=== PATIENT | female | born 1995 | race Caucasian/White ===

== ENCOUNTER 2019-09-07 14:49 | Emergency (ER) | payer BC ==
[2019-09-07] MEDS ORDERED: ASPIRIN 81 MG TABLET, CHEWABLE PO ONE (15:17)
--- NOTE | 2019-09-07 15:21 | ER Document Report ---
ED Medical Screen (RME) - General Chief Complaint: Chest Pain Stated Complaint: CHEST PAIN,TROUBLE BREATHING Time Seen by Provider: 09/07/19 15:14 Mode of Arrival: Ambulatory Information source: Patient Notes: Patient presents complaining of difficulty breathing for the past 2 days. Patient complains of a vibrating feeling into her chest that is uncomfortable. Patient states that her right arm feels numb and she has had some shortness of breath. Patient denies any cough or cold symptoms. Patient denies any significant medical problems or any family history of early heart disease. I have greeted and performed a rapid initial assessment of this patient. A comprehensive ED assessment and evaluation of the patient, analysis of test results and completion of the medical decision making process will be conducted by additional ED providers. TRAVEL OUTSIDE OF THE [place] IN LAST 30 DAYS: No - Related Data Allergies/Adverse Reactions: No Known Allergies Allergy (Unverified 09/07/19 15:14) Home Medications: denies Past Medical History - Social History Chew tobacco use (# tins/day): No Frequency of alcohol use: None Drug Abuse: None Physical Exam - Vital signs Vitals: Temp Pulse Resp BP Pulse Ox 98.8 F 93 16 121/71 99 09/07/19 15:12 09/07/19 15:12 09/07/19 15:12 09/07/19 15:12 09/07/19 15:12 - Respiratory Respiratory status: No respiratory distress Chest status: Tender Breath sounds: Normal Course - Vital Signs Vital signs: Temp Pulse Resp BP Pulse Ox 98.8 F 93 16 121/71 99 09/07/19 15:12 09/07/19 15:12 09/07/19 15:12 09/07/19 15:12 09/07/19 15:12
--- NOTE | 2019-09-07 15:49 | ER Document Report ---
ED Cardiac - General Chief Complaint: Chest Pain Stated Complaint: CHEST PAIN,TROUBLE BREATHING Time Seen by Provider: 09/07/19 15:14 Mode of Arrival: Ambulatory TRAVEL OUTSIDE OF THE [place] IN LAST 30 DAYS: No - Related Data Allergies/Adverse Reactions: No Known Allergies Allergy (Unverified 09/07/19 15:14) Home Medications: denies Past Medical History - General Information source: Patient - Social History Smoking Status: Never Smoker Chew tobacco use (# tins/day): No Frequency of alcohol use: None Drug Abuse: None Patient has suicidal ideation: No Patient has homicidal ideation: No Physical Exam - Vital signs Vitals: Temp Pulse Resp BP Pulse Ox 98.8 F 93 16 121/71 99 09/07/19 15:12 09/07/19 15:12 09/07/19 15:12 09/07/19 15:12 09/07/19 15:12 Course - Re-evaluation Re-evalutation: Given the history and physical examination, the patient's age, risk factors, oxygenation, heart rate, without radiation to the back, I do believe pulmonary embolism and dissection to be extremely unlikely. Cardiac labs were ordered in triage as well as an EKG and an x-ray of the chest. 09/07/19 15:49 EKG shows a rate of 84, normal sinus rhythm, normal axis, no ST elevation or depression. - Vital Signs Vital signs: Temp Pulse Resp BP Pulse Ox 98.8 F 93 13 143/96 H 100 09/07/19 15:12 09/07/19 15:12 09/07/19 15:25 09/07/19 15:25 09/07/19 15:25 - Laboratory Result Diagrams: 09/07/19 15:28 09/07/19 15:28
[2019-09-07 15:57] LABS: ABSOLUTE LYMPHOCYTES (AUTO) 1.5 10^3/uL (0.5-4.7); ABSOLUTE MONOCYTES (AUTO) 0.4 10^3/uL (0.1-1.4); ABSOLUTE NEUT (AUTO) 4.2 10^3/uL (1.7-8.2); BASOPHILS % (AUTO) 0.5 % (0-2); EOSINOPHILS % (AUTO) 0.3 % (0-6); HEMATOCRIT 38.5 % (36.0-47.0); HEMOGLOBIN 13.3 g/dL (12.0-15.5); LYMPHOCYTES % (AUTO) 24.4 % (13-45); MEAN CORPUSCULAR HEMOGLOBIN 32.1 pg (27.0-33.4); MEAN CORPUSCULAR HGB CONC 34.7 g/dL (32.0-36.0); MEAN CORPUSCULAR VOLUME 93 fl (80-97); MONOCYTES % (AUTO) 7.3 % (3-13); PLATELET COUNT 222 10^3/uL (150-450); RED BLOOD COUNT 4.15 10^6/uL (3.72-5.28); RED CELL DISTRIBUTION WIDTH 12.4 % (11.5-14.0); SEGMENTED NEUTROPHILS % (AUTO) 67.5 % (42-78); TOTAL CELLS COUNTED % (AUTO) 100 %; WHITE BLOOD COUNT 6.2 10^3/uL (4.0-10.5)
[2019-09-07 16:13] LABS: ALBUMIN 4.6 g/dL (3.5-5.0); ALKALINE PHOSPHATASE 69 U/L (38-126); ANION GAP 9 (5-19); ASPARTATE AMINO TRANSFERASE 27 U/L (14-36); BILIRUBIN,TOTAL 0.4 mg/dL (0.2-1.3); BLOOD UREA NITROGEN 15 mg/dL (7-20); CALCIUM 9.6 mg/dL (8.4-10.2); CARBON DIOXIDE 29 mmol/L (22-30); CHLORIDE 101 mmol/L (98-107); GLUCOSE 150 mg/dL (75-110); POTASSIUM 3.7 mmol/L (3.6-5.0); TOTAL PROTEIN 7.4 g/dL (6.3-8.2)
--- NOTE | 2019-09-07 16:28 | RADIOLOGY REPORT (SQ) ---
EXAM DESCRIPTION: CHEST 2 VIEWS COMPLETED DATE/TIME: 09/07/2019 4:07 pm REASON FOR STUDY: cp. Chest flattening, right-sided chest pain. Shortness of breath. COMPARISON: None. EXAM PARAMETERS: NUMBER OF VIEWS: two views TECHNIQUE: Digital Frontal and Lateral radiographic views of the chest acquired. RADIATION DOSE: NA LIMITATIONS: none FINDINGS: LUNGS AND PLEURA: No consolidation, pneumothorax or pleural effusion. MEDIASTINUM AND HILAR STRUCTURES: No masses or contour abnormalities. HEART AND VASCULAR STRUCTURES: Heart normal size. No evidence for failure. BONES: No acute findings. HARDWARE: None in the chest. IMPRESSION: NO ACUTE RADIOGRAPHIC FINDING IN THE CHEST. TECHNICAL DOCUMENTATION: JOB ID: [id number] 2010 [employer]- All Rights Reserved Reading location - IP/workstation name: [email or web address]
--- NOTE | 2019-09-07 16:38 | ER Document Report ---
ED Cardiac - General Chief Complaint: Chest Pain Stated Complaint: CHEST PAIN,TROUBLE BREATHING Time Seen by Provider: 09/07/19 15:14 Mode of Arrival: Ambulatory Notes: HPI: 24-year-old female presents today with the onset around 2 days ago of nontraumatic right-sided chest wall pain. She states some radiation into her arm. She denies any runny nose, congestion, cough, fevers. No aggravating relieving factors. She denies any pain to the upper abdomen. She denies any calf pain, leg swelling, recent trips or travel, or taking control medications. She denies any family history of blood clotting disorders. ROS: See HPI All other review of systems reviewed and otherwise negative Reviewed vital signs and nursing note as charted by RN. PHYSICAL EXAM: CONSTITUTIONAL: Alert and oriented and responds appropriately to questions. Well-appearing; well-nourished HEAD: Normocephalic; atraumatic CARD: Regular rate and rhythm; no murmurs; symmetric distal pulses RESP: Normal chest excursion without splinting or tachypnea; breath sounds clear and equal bilaterally; no wheezes, no rhonchi, no rales ABD/GI: Normal bowel sounds; non-distended; soft, non-tender; no palpable organomegaly or masses BACK: The back appears normal and is non-tender to palpation EXT: Normal ROM in all joints; non-tender to palpation; no edema SKIN: No acute lesions noted NEURO: CN 2-12 intact; 5/5 bilateral upper and lower extremity strength with sensation intact to light touch PSYCH: The patient's mood and manner are appropriate. Grooming and personal hygiene are appropriate. TRAVEL OUTSIDE OF THE [place] IN LAST 30 DAYS: No - Related Data Allergies/Adverse Reactions: No Known Allergies Allergy (Unverified 09/07/19 15:14) Home Medications: denies Past Medical History - General Information source: Patient - Social History Smoking Status: Never Smoker Chew tobacco use (# tins/day): No Frequency of alcohol use: None Drug Abuse: None Family History: Reviewed & Not Pertinent Patient has suicidal ideation: No Patient has homicidal ideation: No Physical Exam - Vital signs Vitals: Temp Pulse Resp BP Pulse Ox 98.8 F 93 16 121/71 99 09/07/19 15:12 09/07/19 15:12 09/07/19 15:12 09/07/19 15:12 09/07/19 15:12 Course - Re-evaluation Re-evalutation: 09/07/19 16:37 Given the above history and physical examination with no tenderness to palpation of the anterior chest wall, we will proceed with an x-ray of the chest to evaluate for pneumothorax and an EKG. Cardiac labs were ordered in triage. I have added on a d-dimer given the pleuritic type pain with no tenderness to the chest wall. Very low suspicion for ACS or dissection. EKG shows a rate of 84, normal sinus rhythm, normal axis, no ST elevation or depression 09/07/19 17:23 D-dimer as recorded. X-ray of the chest as recorded. Vital signs are stable. Patient will be discharged home with strict return precautions and follow-up wit h the primary care provider. - Vital Signs Vital signs: Temp Pulse Resp BP Pulse Ox 98.8 F 93 19 109/65 100 09/07/19 15:12 09/07/19 15:12 09/07/19 17:07 09/07/19 17:07 09/07/19 17:07 - Laboratory Result Diagrams: 09/07/19 15:28 09/07/19 15:28 Laboratory results interpreted by me: 09/07/19 15:28 Glucose 150 H Discharge - Discharge Clinical Impression: Atypical chest pain Condition: Good Disposition: HOME, SELF-CARE Additional Instructions: Come back immediately for any increased pain, change in location or quality of pain, difficulty breathing or swallowing, fever, leg swelling, weakness or numbness, or any other acute problems. Please make sure that you follow-up with the primary care physician as discussed. You may take ibuprofen 400 to 600 mg, every 6 hours as needed for pain.
[2019-09-07 18:20] VITALS: BP 115/74
--- NOTE | 2019-09-07 21:25 | EKG REPORT ---
SEVERITY:- BORDERLINE ECG - SINUS RHYTHM BORDERLINE Q WAVE IN ANTERIOR LEADS : Confirmed by: Barbie Huertas MD 07-Sep-2019 21:24:31
== END 2019-09-07 18:13 | disposition home or self-care (01) ==
LOC: ER 14:49
DX: R07.89 Other chest pain (principal); M79.601 Pain in right arm
CPT/HCPCS: 36415; 71046; 80053; 84484; 84703; 85025; 85379; 93005; 93010; 99285